=== PATIENT | female | born 1945 | race Caucasian/White ===

== ENCOUNTER → 2020-08-18 11:27 | Outpatient (CLI) | payer MEDICARE, SELFPAY ==
[2020-08-18 20:29] LABS: Add Manual Diff / Slide Review NO; Basophils Absolute Auto 100 /uL (0-100); Basophils Percent Auto 1.4 % (0-2); Eosinophils Absolute Auto 200 /uL (0-450); Hematocrit 39.2 % (36-46); Hemoglobin 12.8 g/dL (12.0-16.0); Lymphocytes Absolute Auto 2200 /uL (1100-4500); Lymphocytes Percent Auto 31.5 % (25-40); Mean Corpuscular HGB Conc 32.7 % (30-36); Mean Corpuscular Hemoglobin 30.8 PG (26-34); Mean Corpuscular Volume 94.3 fL (80-100); Monocytes Absolute Auto 500 /uL (0-900); Monocytes Percent Auto 7.9 % (3-14); Neutrophils Absolute Auto 3900 /uL (1500-7000); Neutrophils Percent Auto 56.2 % (50-75); Platelet Count 292 X10^3/uL (150-400); Red Blood Cell Count 4.16 X10^6/uL (4.0-5.2); Red Cell Distribution Width 13.7 % (11.6-14.8); White Blood Cell Count 6.9 X10^3/uL (4.5-11.0)
[2020-08-18 20:35] LABS: Alanine Aminotransferase 19 IU/L (<35); Albumin 4.1 g/dL (3.5-5.0); Albumin Globulin Ratio 1.5 (1.0-2.8); Alkaline Phosphatase 91 U/L (38-126); Aspartate Aminotransferase 26 IU/L (14-36); BUN Creatinine Ratio 23.9 (6-22); Bilirubin Total 0.9 mg/dL (0.2-1.3); Blood Urea Nitrogen 28 mg/dL (7-17); Calcium 10.7 mg/dL (8.4-10.2); Carbon Dioxide 25 mmol/L (22-32); Chloride 107 mmol/L (98-107); Cholesterol 179 mg/dL (140-199); Estimated Glomerular Filt Rate 45.2 mL/min (>60); Globulin 2.8 g/dL (1.7-4.1); Glucose 98 mg/dL (80-110); HDL Cholesterol 52 mg/dL (40-60); HEMOLYSIS < 15 (0-50); LDL Cholesterol Calculated 99 mg/dL (<100); Potassium 4.8 mmol/L (3.4-5.1); Sodium 138 mmol/L (137-145); Total Protein 6.9 g/dL (6.3-8.2); Triglycerides 139 mg/dL (35-150)
[2020-08-18 21:03] LABS: Thyroid Stimulating Hormone 0.929 uIU/mL (0.47-4.68)
== END ==
PROVIDERS: Family Provider Family Medicine; Visit Provider Internal Medicine Cardiovascular Disease
DX: E78.5 Hyperlipidemia, unspecified (principal); I10 Essential (primary) hypertension; I95.9 Hypotension, unspecified
CPT/HCPCS: 80053; 80061; 84443; 85025

== ENCOUNTER → 2021-07-13 10:03 | Outpatient (CLI) | payer MEDICARE, SELFPAY ==
[2021-07-13 18:46] LABS: Alanine Aminotransferase 15 IU/L (<35); Albumin Globulin Ratio 1.4 (1.0-2.8); Alkaline Phosphatase 106 U/L (38-126); Aspartate Aminotransferase 22 IU/L (14-36); BUN Creatinine Ratio 25.5 (6-22); Bilirubin Total 0.6 mg/dL (0.2-1.3); Blood Urea Nitrogen 25 mg/dL (7-17); C-Reactive Protein Quant 0.6 mg/dL (<1.0); Calcium 10.5 mg/dL (8.4-10.2); Carbon Dioxide 25 mmol/L (22-32); Chloride 106 mmol/L (98-107); Cholesterol 154 mg/dL (140-199); Estimated Glomerular Filt Rate > 60 mL/min (>60); Globulin 2.8 g/dL (1.7-4.1); Glucose 112 mg/dL (80-110); HDL Cholesterol 47 mg/dL (40-60); HEMOLYSIS < 15 (0-50); LDL Cholesterol Calculated 81 mg/dL (<100); Potassium 4.7 mmol/L (3.4-5.1); Sodium 137 mmol/L (137-145); Total Protein 6.8 g/dL (6.3-8.2); Triglycerides 131 mg/dL (35-150)
[2021-07-13 19:20] LABS: Erythrocyte Sedimentation Rate 44 MM/HR (0-20)
[2021-07-15 16:37] LABS: ANA Screen, IFA Negative (.)
== END ==
PROVIDERS: Family Provider Family Medicine; Visit Provider Family Medicine
DX: I10 Essential (primary) hypertension (principal); E78.2 Mixed hyperlipidemia; F51.04 Psychophysiologic insomnia; N18.31 Chronic kidney disease, stage 3a; R09.81 Nasal congestion; Z98.890 Other specified postprocedural states
CPT/HCPCS: 80053; 80061; 85651; 86038; 86140

== ENCOUNTER → 2021-07-30 09:02 | Outpatient (CLI) | payer MEDICARE, SELFPAY ==
[2021-07-30 20:18] LABS: Hemoglobin A1C% w Est Avg Glu 5.8 % (4.0-6.0)
[2021-08-01 11:39] LABS: Calcium 10.6 mg/dL (8.7-10.3); Parathyroid Hormone, Intact 93 pg/mL (15-65)
[2021-08-03 13:40] LABS: ANA Screen, IFA Negative (.)
[2021-08-04 13:36] LABS: Albumin 3.6 g/dL (2.9-4.4); Alpha 1 Globulin 0.3 g/dL (0.0-0.4); Alpha 2 Globulin 0.8 g/dL (0.4-1.0); Gamma Globulin 1.1 g/dL (0.4-1.8); Protein, Total 6.8 g/dL (6.0-8.5)
== END ==
PROVIDERS: Family Provider Family Medicine; PCP Family Medicine; Visit Provider Family Medicine
DX: R73.9 Hyperglycemia, unspecified (principal); E83.52 Hypercalcemia; R09.81 Nasal congestion; R70.0 Elevated erythrocyte sedimentation rate
CPT/HCPCS: 82310; 83036; 83970; 84155; 84165; 86038

== ENCOUNTER → 2021-09-08 14:19 | Outpatient (CLI) | payer MEDICARE, SELFPAY ==
[2021-09-08 20:36] LABS: BUN Creatinine Ratio 29.5 (6-22); Blood Urea Nitrogen 28 mg/dL (7-17); Calcium 10.4 mg/dL (8.4-10.2); Carbon Dioxide 22 mmol/L (22-32); Chloride 107 mmol/L (98-107); Estimated Glomerular Filt Rate > 60 mL/min (>60); Glucose 97 mg/dL (80-110); HEMOLYSIS < 15 (0-50); Potassium 4.7 mmol/L (3.4-5.1); Sodium 138 mmol/L (137-145)
[2021-09-10 08:36] LABS: Calcium 10.3 mg/dL (8.7-10.3); Parathyroid Hormone, Intact 76 pg/mL (15-65)
[2021-09-13 15:07] LABS: Albumin 3.8 g/dL (2.9-4.4); Alpha-1-Globulin 0.2 g/dL (0.0-0.4); Alpha-2-Globulin 0.7 g/dL (0.4-1.0); Globulin Total 2.9 g/dL (2.2-3.9); Protein, Total 6.7 g/dL (6.0-8.5)
== END ==
PROVIDERS: Family Provider Family Medicine; PCP Family Medicine; Visit Provider Family Medicine
DX: E07.9 Disorder of thyroid, unspecified (principal); E83.52 Hypercalcemia; G25.0 Essential tremor; I10 Essential (primary) hypertension; J32.0 Chronic maxillary sinusitis; R05.3 Chronic cough; Z51.81 Encounter for therapeutic drug level monitoring
CPT/HCPCS: 80048; 82310; 83970; 84155; 84165; 84443

== ENCOUNTER → 2021-11-23 09:33 | Outpatient (CLI) | payer MEDICARE, SELFPAY ==
[2021-11-23 21:03] LABS: Cholesterol 204 mg/dL (140-199); HDL Cholesterol 50 mg/dL (40-60); LDL Cholesterol Calculated 128 mg/dL (<100); Triglycerides 129 mg/dL (35-150)
[2021-11-25 08:31] LABS: Calcium 10.3 mg/dL (8.7-10.3); Parathyroid Hormone, Intact 100 pg/mL (15-65)
== END ==
PROVIDERS: Family Provider Family Medicine; PCP Family Medicine; Visit Provider Family Medicine
DX: I10 Essential (primary) hypertension (principal); Z13.220 Encounter for screening for lipoid disorders; E21.3 Hyperparathyroidism, unspecified; E83.52 Hypercalcemia
CPT/HCPCS: 80061; 82310; 83970

== ENCOUNTER → 2022-07-20 15:05 | Outpatient (CLI) | payer MEDICARE, SELFPAY ==
--- NOTE | 2022-07-20 15:09 | DI.RAD.S_ITS ---
Bone Density Report Name: CÉSAR AVENDAÑO Age: 76 Sex: Female Ethnicity: White Date of : 1945 Indication: postmenopausal; screening for osteoporosis; Referring Provider: PATRIC LOZANO Study: Bone densitometry was performed. Exam Date: July 20, 2022 Accession number: [id number] Bone Density: Region BMD T-score Z-score Classification AP Spine(L1, L2, L3) 1.127 1.0 3.4 Normal Femoral Neck (Left) 0.779 -0.6 1.5 Normal Total Hip (Left) 0.890 -0.4 1.5 Normal Femoral Neck (Right) 0.774 -0.7 1.5 Normal Total Hip (Right) 0.892 -0.4 1.5 Normal Total Hip Mean 0.891 -0.4 1.5 Normal World Health Organization criteria for BMD impression classify patients as: Normal (T-score at or above -1.0), Osteopenia (T-score between -1.0 and -2.5), or Osteoporosis (T-score at or below -2.5). 10-year Fracture Risk: FRAX not reported because: All T-scores for Spine Total, Hip Total, Femoral Neck at or above -1.0 Impression: The patient has normal bone mass. Discussion: BONE DENSITY IS ABOVE THE MINIMUM DESIRABLE LEVEL AT ALL SKELETAL SITES TESTED. This patient's bone mineral density is above the minimum desirable level (T-score -1.0 or better) at all sites measured. The patient should follow a healthful lifestyle (good nutrition with adequate calcium and vitamin D, and appropriate weight-bearing exercise). Follow-Up: Consider repeating this study in 5 years or sooner if there is some new clinical indication. Reported by: DWAINE ROSENBAUM M.D. on 07/20/2022 3:37:00 PM.
== END ==
PROVIDERS: Family Provider Family Medicine; PCP Family Medicine; Referring Provider Family Medicine; Visit Provider Family Medicine
DX: E21.3 Hyperparathyroidism, unspecified (principal)
CPT/HCPCS: 77080

== ENCOUNTER → 2022-08-09 11:24 | Outpatient (CLI) | payer MEDICARE, SELFPAY ==
[2022-08-09 19:21] LABS: BUN Creatinine Ratio 19.1 (6-22); Blood Urea Nitrogen 18 mg/dL (7-17); Calcium 10.6 mg/dL (8.4-10.2); Carbon Dioxide 27 mmol/L (22-32); Chloride 103 mmol/L (98-107); Estimated Glomerular Filt Rate > 60 mL/min (>60); Glucose 99 mg/dL (80-110); HEMOLYSIS < 15 (0-50); Magnesium 2.1 mg/dL (1.6-2.3); Potassium 4.5 mmol/L (3.4-5.1); Sodium 137 mmol/L (137-145)
[2022-08-09 19:26] LABS: Cholesterol 172 mg/dL (140-199); HDL Cholesterol 46 mg/dL (40-60); LDL Cholesterol Calculated 87 mg/dL (<100); Triglycerides 197 mg/dL (35-150)
[2022-08-13 08:09] LABS: Calcium 10.5 mg/dL (8.7-10.3); Parathyroid Hormone, Intact 103 pg/mL (15-65)
== END ==
PROVIDERS: Family Provider Family Medicine; PCP Family Medicine; Visit Provider Family Medicine
DX: E83.52 Hypercalcemia (principal); I10 Essential (primary) hypertension; E21.3 Hyperparathyroidism, unspecified; E78.2 Mixed hyperlipidemia
CPT/HCPCS: 80048; 80061; 82310; 83735; 83970

== ENCOUNTER → 2022-09-05 13:34 | Outpatient (CLI) | payer MEDICARE, SELFPAY ==
[2022-09-05 19:47] LABS: Add Manual Diff / Slide Review NO; Basophils Absolute Auto 100 /uL (0-100); Basophils Percent Auto 0.6 % (0-2); Eosinophils Absolute Auto 300 /uL (0-450); Eosinophils Percent Auto 3.1 % (2-4); Hematocrit 36.1 % (36-46); Hemoglobin 12.2 g/dL (12.0-16.0); Lymphocytes Absolute Auto 2400 /uL (1100-4500); Lymphocytes Percent Auto 27.3 % (25-40); Mean Corpuscular HGB Conc 33.8 % (30-36); Mean Corpuscular Hemoglobin 30.5 PG (26-34); Mean Corpuscular Volume 90.4 fL (80-100); Monocytes Absolute Auto 600 /uL (0-900); Monocytes Percent Auto 6.7 % (3-14); Neutrophils Absolute Auto 5500 /uL (1500-7000); Neutrophils Percent Auto 62.3 % (50-75); Platelet Count 344 X10^3/uL (150-400); Red Cell Distribution Width 14.6 % (11.6-14.8); White Blood Cell Count 8.8 X10^3/uL (4.5-11.0)
[2022-09-05 19:50] LABS: C-Reactive Protein Quant 1.4 mg/dL (<1.0)
[2022-09-05 20:07] LABS: Vitamin D 25 Hydroxy (D3) 33.4 ng/mL (30.0-100.0)
[2022-09-05 20:18] LABS: TSH w/ Reflex to FT4 0.85 uIU/mL (0.47-4.68)
[2022-09-05 20:36] LABS: Erythrocyte Sedimentation Rate 28 MM/HR (0-20)
[2022-09-05 20:38] LABS: Vitamin B12 377 pg/mL (239-931)
[2022-09-08 17:36] LABS: ANA Screen, IFA Negative (.)
== END ==
PROVIDERS: Family Provider Family Medicine; PCP Family Medicine; Visit Provider Family Medicine
DX: E83.52 Hypercalcemia (principal); E78.2 Mixed hyperlipidemia; F51.04 Psychophysiologic insomnia; I10 Essential (primary) hypertension; M79.10 Myalgia, unspecified site; R26.89 Other abnormalities of gait and mobility; R53.83 Other fatigue
CPT/HCPCS: 82306; 82607; 84443; 85025; 85651; 86038; 86140

== ENCOUNTER → 2023-08-02 11:09 | Outpatient (CLI) | payer MEDICARE, SELFPAY ==
[2023-08-02 19:28] LABS: Add Manual Diff / Slide Review NO; Basophils Absolute Auto 100 /uL (0-100); Eosinophils Absolute Auto 300 /uL (0-450); Eosinophils Percent Auto 4.2 % (2-4); Hematocrit 38.5 % (36-46); Hemoglobin 12.6 g/dL (12.0-16.0); Lymphocytes Absolute Auto 2100 /uL (1100-4500); Lymphocytes Percent Auto 27.4 % (25-40); Mean Corpuscular HGB Conc 32.8 % (30-36); Mean Corpuscular Hemoglobin 30.5 PG (26-34); Mean Corpuscular Volume 92.9 fL (80-100); Monocytes Absolute Auto 700 /uL (0-900); Neutrophils Absolute Auto 4400 /uL (1500-7000); Neutrophils Percent Auto 58.4 % (50-75); Platelet Count 282 X10^3/uL (150-400); Red Blood Cell Count 4.14 X10^6/uL (4.0-5.2); Red Cell Distribution Width 14.4 % (11.6-14.8); White Blood Cell Count 7.6 X10^3/uL (4.5-11.0)
[2023-08-02 20:12] LABS: BUN Creatinine Ratio 28.9 (6-22); Blood Urea Nitrogen 28 mg/dL (7-17); Calcium 10.5 mg/dL (8.4-10.2); Carbon Dioxide 27 mmol/L (22-32); Chloride 109 mmol/L (98-107); Cholesterol 148 mg/dL (140-199); Estimated Glomerular Filt Rate > 60 mL/min (>60); Glucose 102 mg/dL (80-110); HDL Cholesterol 48 mg/dL (40-60); HEMOLYSIS < 15 (0-50); LDL Cholesterol Calculated 78 mg/dL (<100); Potassium 4.6 mmol/L (3.4-5.1); Sodium 139 mmol/L (137-145); Triglycerides 112 mg/dL (35-150)
[2023-08-04 13:12] LABS: Calcium 10.1 mg/dL (8.7-10.3); Parathyroid Hormone, Intact 81 pg/mL (15-65)
== END ==
PROVIDERS: Family Provider Family Medicine; PCP Family Medicine; Referring Provider Family Medicine; Visit Provider Family Medicine
DX: I12.9 Hypertensive chronic kidney disease with stage 1 through stage 4 chronic kidney disease, or unspecified chronic kidney disease (principal); N18.9 Chronic kidney disease, unspecified; E21.3 Hyperparathyroidism, unspecified; J45.909 Unspecified asthma, uncomplicated; G25.0 Essential tremor; E83.52 Hypercalcemia; E78.2 Mixed hyperlipidemia
CPT/HCPCS: 80048; 80061; 82310; 83970; 85025

== ENCOUNTER → 2023-10-10 09:58 | Outpatient (CLI) | payer MEDICARE, SELFPAY ==
--- NOTE | 2023-10-10 10:00 | DI.US.S_ITS ---
PROCEDURE: US THYROID INDICATIONS: NODULES TECHNIQUE: Real-time scanning was performed of the thyroid gland, with image documentation. COMPARISON: None. FINDINGS: Thyroid: Right lobe measures 4.8 x 1.5 x 1.8 cm. Left lobe measures 4.8 x 1.5 by 1.9 cm. Isthmus is 0.5 cm thick. Echotexture is heterogeneous Multiple thyroid nodules. Multiple subcentimeter and spongiform/cystic nodules in the right thyroid do not require dedicated follow-up. Left mid thyroid nodule measures 16 x 9 x 8 mm. It is partially solid and partially cystic. There are comet tail artifacts within the cystic portion. The possible solid component is hypoechoic. TR 3. IMPRESSION: TR 3 nodule in the left mid thyroid. Follow-up is recommended. ACR TI-RADS definitions and recommendations: TI-RADS 1 (benign): 0 points. FNA not needed. TI-RADS 2 (not suspicious): 2 points. FNA not needed. TI-RADS 3 (mildly suspicious): 3 points. * FNA if 2.5 cm or larger, follow up if 1.5 cm or larger (at 1, 3, and 5 years). TI-RADS 4 (moderately suspicious): 4-6 points. * FNA if 1.5 cm or larger, follow up if 1 cm or larger (at 1, 2, 3, and 5 years). TI-RADS 5 (highly suspicious): 7 points or more. * FNA if 1 cm or larger, follow up if 0.5 cm or larger (every year for 5 years). Dictated by: Kd Vargas M.D. on 10/10/2023 at 15:27 Approved by: Kd Vargas M.D. on 10/10/2023 at 15:31
== END ==
PROVIDERS: Family Provider Family Medicine; PCP Family Medicine; Referring Provider Family Medicine; Visit Provider Family Medicine
DX: E04.2 Nontoxic multinodular goiter (principal); E07.9 Disorder of thyroid, unspecified
CPT/HCPCS: 76536

== ENCOUNTER → 2023-11-16 14:20 | Outpatient (CLI) | payer MEDICARE, SELFPAY ==
--- NOTE | 2023-11-16 14:22 | DI.CT.S_ITS ---
PROCEDURE: CT SINUS SCREEN WO CON INDICATIONS: chronic sinusitis TECHNIQUE: Noncontrast 3.0 mm axial images acquired from the frontal sinuses to the mid-sella, with coronal and sagittal reformats. For radiation dose reduction, the following was used: automated exposure control, adjustment of mA and/or kV according to patient size. COMPARISON: None. FINDINGS: Image quality: Excellent. Maxillary Sinuses: There is at least moderate mucosal thickening seen within the left maxillary sinus. Minimal mucosal thickening can be seen on the right. The superior medial marsh of the maxillary sinuses have been removed. Ethmoid Air Cells: Portions of the ethmoid air cell septations have been removed. Sinuses are clear. Sphenoid Sinuses: Relatively prominent mucosal thickening can be seen within the sphenoid sinuses. The marsh of the sphenoid sinuses overall appear thickened. Frontal Sinuses: No bony remodeling or destruction. Sinuses are clear. Ostiomeatal Complexes: Removed. Miscellaneous: Visualized intra-orbital contents are normal. Portions of the nasal turbinates have been removed. There is mild S shaped nasal septal deviation. 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 This is not considered to be pathologic in a woman of this age. IMPRESSION: Extensive postoperative changes, with bilateral antrectomy. Focal sinus disease seen involving the left maxillary sinus and the sphenoid sinuses. Dictated by: Meliton Snyder M.D. on 11/16/2023 at 14:03 Approved by: Meliton Snyder M.D. on 11/16/2023 at 14:05
== END ==
PROVIDERS: Family Provider Family Medicine; PCP Family Medicine; Referring Provider Family Medicine; Visit Provider Family Medicine
DX: J32.8 Other chronic sinusitis (principal)
CPT/HCPCS: 70486

== ENCOUNTER → 2024-02-06 10:14 | Outpatient (CLI) | payer MEDICARE, SELFPAY ==
[2024-02-06 19:34] LABS: Add Manual Diff / Slide Review NO; Basophils Absolute Auto 100 /uL (0-100); Eosinophils Absolute Auto 400 /uL (0-450); Eosinophils Percent Auto 3.9 % (2-4); Hematocrit 38.4 % (36-46); Hemoglobin 12.7 g/dL (12.0-16.0); Lymphocytes Absolute Auto 2100 /uL (1100-4500); Lymphocytes Percent Auto 20.2 % (25-40); Mean Corpuscular Hemoglobin 30.7 PG (26-34); Monocytes Absolute Auto 700 /uL (0-900); Monocytes Percent Auto 6.6 % (3-14); Neutrophils Absolute Auto 7000 /uL (1500-7000); Neutrophils Percent Auto 68.3 % (50-75); Platelet Count 345 X10^3/uL (150-400); Red Blood Cell Count 4.13 X10^6/uL (4.0-5.2); Red Cell Distribution Width 13.6 % (11.6-14.8); White Blood Cell Count 10.2 X10^3/uL (4.5-11.0)
[2024-02-06 19:35] LABS: BUN Creatinine Ratio 22.9 (6-22); Blood Urea Nitrogen 25 mg/dL (7-17); Calcium 10.2 mg/dL (8.4-10.2); Carbon Dioxide 26 mmol/L (22-32); Chloride 107 mmol/L (98-107); Cholesterol 157 mg/dL (140-199); Estimated Glomerular Filt Rate 52 mL/min (>60); Glucose 102 mg/dL (80-110); HDL Cholesterol 56 mg/dL (40-60); HEMOLYSIS < 15 (0-50); LDL Cholesterol Calculated 83 mg/dL (<100); Potassium 4.5 mmol/L (3.4-5.1); Sodium 136 mmol/L (137-145); Triglycerides 91 mg/dL (35-150)
[2024-02-06 20:04] LABS: TSH w/ Reflex to FT4 1.27 uIU/mL (0.47-4.68)
[2024-02-08 12:36] LABS: Calcium 10.2 mg/dL (8.7-10.3); Parathyroid Hormone, Intact 91 pg/mL (15-65)
== END ==
PROVIDERS: Family Provider Family Medicine; PCP Family Medicine; Visit Provider Family Medicine
DX: I25.10 Atherosclerotic heart disease of native coronary artery without angina pectoris (principal); I10 Essential (primary) hypertension; E21.3 Hyperparathyroidism, unspecified; E07.9 Disorder of thyroid, unspecified; E83.52 Hypercalcemia; E78.2 Mixed hyperlipidemia
CPT/HCPCS: 80048; 80061; 82310; 83970; 84443; 85025

== ENCOUNTER → 2024-08-20 10:22 | Outpatient (CLI) | payer MEDICARE, SELFPAY ==
[2024-08-20 21:05] LABS: Add Manual Diff / Slide Review NO; Hematocrit 40.7 % (36-46); Hemoglobin 13.6 g/dL (12.0-16.0); Lymphocytes Absolute Auto 2000 /uL (1100-4500); Mean Corpuscular HGB Conc 33.5 % (30-36); Mean Corpuscular Hemoglobin 30.8 PG (26-34); Mean Corpuscular Volume 92.0 fL (80-100); Platelet Count 310 X10^3/uL (150-400)
[2024-08-20 21:16] LABS: Blood Urea Nitrogen 40 mg/dL (7-17); Calcium 11.2 mg/dL (8.4-10.2); Carbon Dioxide 25 mmol/L (22-32); Chloride 105 mmol/L (98-107); Cholesterol 132 mg/dL (140-199); Estimated Glomerular Filt Rate 42 mL/min (>60); Glucose 103 mg/dL (70-99); HDL Cholesterol 49 mg/dL (40-60); HEMOLYSIS 23 (0-50); Potassium 4.1 mmol/L (3.4-5.1); Sodium 140 mmol/L (137-145); Triglycerides 78 mg/dL (35-150)
[2024-08-20 21:40] LABS: TSH w/ Reflex to FT4 0.95 uIU/mL (0.47-4.68)
[2024-08-22 06:08] LABS: Calcium 11.1 mg/dL (8.7-10.3); Parathyroid Hormone, Intact 107 pg/mL (15-65)
== END ==
PROVIDERS: Family Provider Family Medicine; PCP Family Medicine; Visit Provider Family Medicine
DX: I25.10 Atherosclerotic heart disease of native coronary artery without angina pectoris (principal); E83.52 Hypercalcemia; K21.9 Gastro-esophageal reflux disease without esophagitis; M70.60 Trochanteric bursitis, unspecified hip; E78.2 Mixed hyperlipidemia; E21.3 Hyperparathyroidism, unspecified; I10 Essential (primary) hypertension; Z68.31 Body mass index [BMI] 31.0-31.9, adult
CPT/HCPCS: 80048; 80061; 82310; 83970; 84443; 85025

== ENCOUNTER → 2024-09-18 13:02 | Outpatient (CLI) | payer MEDICARE, SELFPAY ==
[2024-09-18 19:29] LABS: Blood Urea Nitrogen 33 mg/dL (7-17); Calcium 9.4 mg/dL (8.4-10.2); Carbon Dioxide 23 mmol/L (22-32); Chloride 97 mmol/L (98-107); Estimated Glomerular Filt Rate 46 mL/min (>60); Glucose 122 mg/dL (70-99); HEMOLYSIS < 15 (0-50); Potassium 4.0 mmol/L (3.4-5.1); Sodium 129 mmol/L (137-145)
== END ==
PROVIDERS: Family Provider Family Medicine; PCP Family Medicine; Visit Provider Family Medicine
DX: N18.31 Chronic kidney disease, stage 3a (principal)
CPT/HCPCS: 80048

== ENCOUNTER → 2024-10-30 13:02 | Outpatient (CLI) | payer MEDICARE, SELFPAY ==
[2024-10-30 20:25] LABS: Blood Urea Nitrogen 38 mg/dL (7-17); Calcium 10.6 mg/dL (8.4-10.2); Carbon Dioxide 26 mmol/L (22-32); Chloride 97 mmol/L (98-107); Estimated Glomerular Filt Rate 40 mL/min (>60); Glucose 110 mg/dL (70-99); HEMOLYSIS < 15 (0-50); Potassium 3.8 mmol/L (3.4-5.1); Sodium 132 mmol/L (137-145)
== END ==
PROVIDERS: Family Provider Family Medicine; PCP Family Medicine; Visit Provider Family Medicine
DX: E87.1 Hypo-osmolality and hyponatremia (principal)
CPT/HCPCS: 80048

== ENCOUNTER → 2024-12-05 11:30 | Outpatient (CLI) | payer MEDICARE, SELFPAY ==
[2024-12-05 19:08] LABS: Blood Urea Nitrogen 27 mg/dL (7-17); Calcium 10.7 mg/dL (8.4-10.2); Carbon Dioxide 30 mmol/L (22-32); Chloride 98 mmol/L (98-107); Estimated Glomerular Filt Rate 43 mL/min (>60); Glucose 106 mg/dL (70-99); HEMOLYSIS < 15 (0-50); Potassium 4.0 mmol/L (3.4-5.1); Sodium 136 mmol/L (137-145)
== END ==
PROVIDERS: Family Provider Family Medicine; PCP Family Medicine; Visit Provider Family Medicine
DX: R79.89 Other specified abnormal findings of blood chemistry (principal)
CPT/HCPCS: 80048

== ENCOUNTER → 2025-01-02 09:12 | Outpatient (CLI) | payer MEDICARE, SELFPAY ==
[2025-01-02 19:04] LABS: Add Manual Diff / Slide Review NO; Hematocrit 38.1 % (36-46); Hemoglobin 13.0 g/dL (12.0-16.0); Lymphocytes Absolute Auto 1800 /uL (1100-4500); Mean Corpuscular HGB Conc 34.0 % (30-36); Mean Corpuscular Hemoglobin 31.0 PG (26-34); Mean Corpuscular Volume 91.2 fL (80-100); Platelet Count 306 X10^3/uL (150-400)
[2025-01-02 19:36] LABS: Blood Urea Nitrogen 24 mg/dL (7-17); Calcium 11.6 mg/dL (8.4-10.2); Carbon Dioxide 31 mmol/L (22-32); Chloride 96 mmol/L (98-107); Cholesterol 165 mg/dL (140-199); Estimated Glomerular Filt Rate 46 mL/min (>60); Glucose 103 mg/dL (70-99); HDL Cholesterol 46 mg/dL (40-60); HEMOLYSIS < 15 (0-50); Potassium 3.6 mmol/L (3.4-5.1); Sodium 136 mmol/L (137-145); Triglycerides 143 mg/dL (35-150)
[2025-01-02 20:06] LABS: TSH w/ Reflex to FT4 1.08 uIU/mL (0.47-4.68)
== END ==
PROVIDERS: Family Provider Family Medicine; PCP Family Medicine; Visit Provider Family Medicine
DX: I25.10 Atherosclerotic heart disease of native coronary artery without angina pectoris (principal); R79.89 Other specified abnormal findings of blood chemistry; K21.9 Gastro-esophageal reflux disease without esophagitis; E78.2 Mixed hyperlipidemia; E21.3 Hyperparathyroidism, unspecified; I10 Essential (primary) hypertension; E87.1 Hypo-osmolality and hyponatremia; Z68.28 Body mass index [BMI] 28.0-28.9, adult
CPT/HCPCS: 80048; 80061; 84443; 85025